=== PATIENT | female | born 1950 | race Caucasian/White ===

== ENCOUNTER 2019-02-14 02:54 | Inpatient (IN) | payer MEDICARE ==
[~2019-02-14] VITALS: Ht 162.6 cm; Wt 125.2 kg
[2019-02-14 03:04] VITALS: BP 120/52
[2019-02-14] MEDS ORDERED: TRAMADOL 50 MG50 MG PO (03:08)
[2019-02-14] MEDS ORDERED: NEURONTIN 300300 M1 PO (03:08)
[2019-02-14] MEDS ORDERED: IBUPROFEN 800800 M1 PO (03:09)
[2019-02-14] MEDS ORDERED: LAMICTAL (ORAN1 EACH PO (03:10)
[2019-02-14 03:27] LABS: ABSOLUTE EOSINOPHILS 0.2 thou/uL (0.0-0.7); ABSOLUTE LYMPHOCYTES 1.2 thou/uL (0.8-5.3); ABSOLUTE MONOCYTES 0.8 thou/uL (0.0-1.2); ABSOLUTE NEUTROPHILS 9.8 thou/uL (1.6-8.1); BASOPHILS 0.3 %; EOSINOPHILS 1.9 %; HEMATOCRIT 30.7 % (37.0-47.0); HEMOGLOBIN 9.3 gm/dL (12.0-15.0); LYMPHOCYTES 10.1 %; MCH 22.3 pg (26.0-34.0); MCHC 30.4 g/dL (28.0-37.0); MCV 73.2 fL (80.0-100.0); MPV 7.5 fl. (7.2-11.1); NUCLEATED RBCS 0 /100WBC; PLATELET COUNT* 326 thou/uL (150-400); POLYS 80.7 %; RDW-CV 18.2 % (10.5-14.5); WBC 12.1 thou/uL (4.0-11.0)
[2019-02-14 03:36] LABS: ANION GAP 9 mmol/L (7-16); BUN 15 mg/dL (7-18); CALCIUM 8.3 mg/dL (8.5-10.1); CHLORIDE 106 mmol/L (98-107); CO2 26 mmol/L (21-32); CREATININE 1.2 mg/dL (0.6-1.3); GLUCOSE 118 mg/dL (70-99); POTASSIUM 4.1 mmol/L (3.5-5.1); SODIUM 141 mmol/L (136-145)
[2019-02-14 03:53] LABS: ALBUMIN 2.7 g/dL (3.4-5.0); ALKALINE PHOSPHATASE 131 U/L (46-116); LIPASE 80 U/L (73-393); NT-PRO BRAIN NAT PEPTIDE 314 pg/mL (<300); SGOT 16 U/L (15-37); SGPT 23 U/L (30-65); TOTAL BILIRUBIN 0.2 mg/dL (<0.1-1.0); TOTAL PROTEIN 6.3 g/dL (6.4-8.2); TROPONIN-I LEVEL <0.06 ng/mL (<0.06)
[2019-02-14 04:48] LABS: URINE BILIRUBIN NEGATIVE (Negative); URINE BLOOD NEGATIVE (Negative); URINE CLARITY CLEAR; URINE COLOR YELLOW; URINE GLUCOSE-RANDOM NEGATIVE (Negative); URINE KETONES NEGATIVE (Negative); URINE LEUKOCYTES-REFLEX TRACE (Negative); URINE PROTEIN NEGATIVE (Negative); URINE UROBILINOGEN 0.2 E.U./dl (0.2-1.0)
[2019-02-14 04:50] LABS: URINE NITRITE-REFLEX POSITIVE (Negative)
[2019-02-14 05:03] LABS: BACTERIA-REFLEX >30 Many /HPF (None Seen); SQUAMOUS 0-3 Few /LPF (0-3); URINE RBC 3-10 Few /HPF (0-2); URINE WBC-REFLEX >25 Many /HPF (0-5); WBC CLUMPS Moderate (None Seen)
[2019-02-14 05:04] LABS: CASTS None Seen /LPF (None Seen); CRYSTALS None Seen /LPF (None Seen); MUCUS 0-3 Light strn/LPF (None Seen)
--- NOTE | 2019-02-14 07:12 | NUR ---
THIS NURSE RECEIVED REPORT FROM LAWRENCE PINEDA. THIS NURSE TO ASSUME PT CARE AT THIS [facility].
--- NOTE | 2019-02-14 07:32 | NUR ---
NURSE WENT IN ROOM TO CHECK ON PT. PT ASKED "I DON'T KNOW IF YOU ARE WANTING TO KEEP ME ON THIS BEDPAN SINCE I AM GOING SO OFTEN". NURSE ASKED PT IF SHE HAD BEDPAN UNDER HER CURRENTLY. PT NODDED HEAD UP AND DOWN. NURSE ASSISTED PT OFF BEDPAN. BED COMPLETELY SOILED. NURSE ASSISTED TRANSFERING PT TO CHAIR, PT TOLERATED WELL. NURSE CHANGED PT LINENS AND PT GIVEN NEW GOWN TO CHANGE INTO. NURSE ASKED HOW LONG PT HAD BEEN ON BEDPAN, PT STATED "AT LEAST AN HOUR". COMMODE USE DISCUSSED WITH PT, PT AGREEABLE, COMMODE PLACED IN ROOM.
[2019-02-14 07:36] LABS: HYPOCHROMASIA 1+; MICROCYTES 1+
--- NOTE | 2019-02-14 08:09 | NUR ---
PT CALLED OUT. NURSE IN ROOM. PT STATES "I NEED TO TAKE MY MORNING MEDS". PT HAS MEDICATIONS IN HAND. DR. OLIVEIRA ASKED BY NURSE IF PT COULD TAKE MEDICATIONS. DR. OLIVEIRA STATED "YES, THAT IS FINE". NURSE NOTIFIED PT SHE COULD TAKE MEDICATIONS. WATER AND CRACKERS GIVEN TO PT. CALL LIGHT WITHIN REACH.
--- NOTE | 2019-02-14 09:42 | NUR ---
HOSPITALIST AT BEDSIDE TALKING WITH PT.
--- NOTE | 2019-02-14 12:44 | EKG ---
[place] [address] ELECTROCARDIOGRAM REPORT Name: PAYAL SAHNI Room: [place] [address] ADM IN .R.#: [id number] Admission: 02/14/19 Attend Phys: Jace Rowland Discharge: Date of : 52 Report #: [id number] THIS REPORT FOR: //name// [facility] ED Test Date: 2019-02-14 Test Time: 03:05:37 Pat Name: PAYAL SAHNI Department: Room: [facility] Gender: F Canvas Shrinker: DENNYS : 1950 Requested By: Maureen Pa Order Number: [id number] MD: Lincoln Farr Measurements Intervals [place] Rate: 84 P: 51 ND: 135 QRS: 7 QRSD: 91 T: 79 QT: 373 QTc: 441 Interpretive Statements Sinus rhythm Abnormal R-wave progression, early transition No previous ECG available for comparison Electronically Signed On 02-14-2019 12:44:41 CDT by Lincoln Farr [email or web address] <ELECTRONICALLY SIGNED> By: Lincoln Farr MD, [facility] 02/14/19 [id number] Lincoln Farr MD, FACC /EPI
--- NOTE | 2019-02-14 13:12 | NUR ---
DR. ALCANTAR PAGED REGARDING REQUESTED LITHIUM LEVEL DRAW FROM FAMILY.
--- NOTE | 2019-02-14 14:49 | NUR ---
REPORT GIVEN TO LAWRENCE KEARNS WHO IS TO ASSUME PT CARE INPATIENT NURSE.
[2019-02-14 14:50] VITALS: BP 157/64
[2019-02-14 15:12] VITALS: BP 157/69
--- NOTE | 2019-02-14 15:25 | NUR ---
PT ANSWERS ORIENTATION QUESTIONS APPRORIATELY, HOWEVER PT IS FORGETFUL.LUNGS CLEAR ON ROOM AIR. HEART REGULAR, PULSES 2+ ALL EXTREMITIES. NO SKIN ISSUES NOTED ON ADMISSION. PT COMPLAINS OF WEAKNESS. STRENGTH SYMMETRICAL ON UPPER, LOWER AND FACIAL MUSCLES. PT X1 ASSIST WITH GAIT BELT PIVOT TO COMMODE. PT ATTEMPTED TO GET OUT OF BED. PT EDUCATED ON USING CALL LIGHT. PT RESTING IN BED. FALL RISK PRECAUTIONS IN PLACE. WILL CONTINUE TO MONITOR.
--- NOTE | 2019-02-14 18:17 | NUR ---
PT ALERT AND FORGETFUL ,SUNDOWNERS PRESENT. PT CONFUSED AT TIMES. PAIN MEDS GIVEN ORDERED. TELE STATUS ORDERED. FALL RISK PRECAUTIONS IN PLACE. HOURLY ROUNDING COMPLETED. WILL CONTINUE TO MONITOR.
[2019-02-14 20:00] VITALS: BP 128/71
[2019-02-15] VITALS (7 sets, daily range): BP systolic 141–173; BP diastolic 67–91
[2019-02-15 05:06] LABS: ABSOLUTE EOSINOPHILS 0.3 thou/uL (0.0-0.7); ABSOLUTE LYMPHOCYTES 1.9 thou/uL (0.8-5.3); ABSOLUTE MONOCYTES 0.6 thou/uL (0.0-1.2); ABSOLUTE NEUTROPHILS 4.4 thou/uL (1.6-8.1); BASOPHILS 0.3 %; EOSINOPHILS 4.2 %; HEMATOCRIT 26.9 % (37.0-47.0); HEMOGLOBIN 8.4 gm/dL (12.0-15.0); LYMPHOCYTES 26.6 %; MCH 22.7 pg (26.0-34.0); MCHC 31.2 g/dL (28.0-37.0); MCV 72.8 fL (80.0-100.0); MONOCYTES 8.2 %; MPV 7.9 fl. (7.2-11.1); NUCLEATED RBCS 0 /100WBC; PLATELET COUNT* 299 thou/uL (150-400); POLYS 60.7 %; RDW-CV 18.3 % (10.5-14.5); WBC 7.2 thou/uL (4.0-11.0)
[2019-02-15 05:26] LABS: ANION GAP 7 mmol/L (7-16); BUN 5 mg/dL (7-18); CALCIUM 8.6 mg/dL (8.5-10.1); CHLORIDE 110 mmol/L (98-107); CHOLESTEROL 107 mg/dL (<200); CO2 29 mmol/L (21-32); CREATININE 0.6 mg/dL (0.6-1.3); GLUCOSE 95 mg/dL (70-99); HDL CHOLESTEROL 56 mg/dL (>40); LDL CHOLESTEROL 39 mg/dL (<100); POTASSIUM 3.9 mmol/L (3.5-5.1); SODIUM 146 mmol/L (136-145); TC:HDL 1.9 Ratio (Not establshd); TRIGLYCERIDE 63 mg/dL (<150); VLDL 13 mg/dL (<40)
[2019-02-15 05:34] LABS: SERUM ASSESSMENT CLEAR
[2019-02-15 06:23] LABS: PLATELET ESTIMATE ADEQUATE
[2019-02-15 06:24] LABS: HYPOCHROMASIA 2+; OVALOCYTES 2+
[2019-02-15 06:25] LABS: MICROCYTES 2+
--- NOTE | 2019-02-15 06:47 | NUR ---
PT TRANSFERED FROM [facility] AT 2000 VIA BED. PT ALERT AND ORIENTED TO SELF AND PLACE UPON ARRIVAL TO UNIT. PT AWARE OF BEING CONFUSED. 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 HIGH FALL PRECAUTIONS IN PLACE. CALL LIGHT WITHIN REACH, NEGATIVE SEPSIS SCREEN THIS AM.
--- NOTE | 2019-02-15 07:15 | NUR ---
CHANGE OF SHIFT BEDSIDE REPORT GIVEN PATIENT SEEN AT BEDSIDE, IN BED ASLEEP ASSUMED PATIENT CARE
[2019-02-16 00:54] VITALS: BP 174/68
[2019-02-16 03:09] LABS: GLYCOHEMOGLOBIN (HGB A1C) 6.2 % (4.8-5.6)
[2019-02-16 04:00] VITALS: BP 157/71
--- NOTE | 2019-02-16 05:28 | NUR ---
ASSUMED CARE OF PT AFTER REPORT AT 1930. PT A&OX4. VSS. PHYSICAL ASSESSMENT COMPLETED AND CHARTED. PT ON RA. PT TRACING SR ON TELE. PT UPSTANDBY TO RESTROOM. PT COMPLAINED OF RIGHT GROIN,LEG & LOWER BACK PAIN- MEDS GIVEN PER MAR. PT ABLE TO SLEEP WELL ON BED. CALL LIGHT WITHIN REACH.
--- NOTE | 2019-02-16 07:10 | NUR ---
CHANGE OF SHIFT, BEDSIDE REPORT GIVEN PATIENT SEEN AT BEDSIDE, IN BED ASLEEP ASSUMED PATIENT CARE
[2019-02-16 08:00] VITALS: BP 155/80
[2019-02-16 12:00] VITALS: BP 137/57
[2019-02-16 16:00] VITALS: BP 154/76
[2019-02-16 20:00] VITALS: BP 159/73
[2019-02-17 00:46] VITALS: BP 169/80
[2019-02-17 04:59] LABS: ABSOLUTE EOSINOPHILS 0.4 thou/uL (0.0-0.7); ABSOLUTE LYMPHOCYTES 2.6 thou/uL (0.8-5.3); ABSOLUTE MONOCYTES 0.9 thou/uL (0.0-1.2); ABSOLUTE NEUTROPHILS 4.8 thou/uL (1.6-8.1); BASOPHILS 0.4 %; EOSINOPHILS 4.4 %; HEMATOCRIT 29.1 % (37.0-47.0); HEMOGLOBIN 9.1 gm/dL (12.0-15.0); MCH 22.7 pg (26.0-34.0); MCHC 31.2 g/dL (28.0-37.0); MCV 72.8 fL (80.0-100.0); MONOCYTES 10.4 %; MPV 7.6 fl. (7.2-11.1); NUCLEATED RBCS 0 /100WBC; PLATELET COUNT* 294 thou/uL (150-400); POLYS 54.8 %; RDW-CV 18.2 % (10.5-14.5); WBC 8.8 thou/uL (4.0-11.0)
[2019-02-17 05:10] LABS: CALCIUM 8.2 mg/dL (8.5-10.1); CREATININE 0.6 mg/dL (0.6-1.3); POTASSIUM 3.4 mmol/L (3.5-5.1)
--- NOTE | 2019-02-17 06:12 | NUR ---
ASSUMED CARE OF PT AFTER REPORT AT 1930. PT A&OX4. VSS. PHYSICAL ASSESSMENT COMPLETED AND CHARTED. PT ON RA. PT ON MEDSURG STATUS. PT UPSTANDBY TO RESTROOM. PT COMPLAINED OF RIGHT HIP, LEG & LOWER BACK PAIN-MEDS GIVEN PER MAR. PT ABLE TO SLEEP WELL ON BED. FALL PRECAUTIONS IN PLACE. CALL LIGHT WITHIN REACH.
[2019-02-17 06:15] LABS: ANISOCYTOSIS 1+; HYPOCHROMASIA 1+; MICROCYTES 1+; PLATELET ESTIMATE ADEQUATE
[2019-02-17 08:00] VITALS: BP 142/70
[2019-02-17 12:30] VITALS: BP 169/80
[2019-02-17] MEDS ORDERED: DOK PLUS TABLE1 EACH PO (13:40)
[2019-02-17] MEDS ORDERED: KLOR-CON M2020 MEQ PO (13:40)
[2019-02-17] MEDS ORDERED: THERA M PLUS T1 EAC2 PO (13:40)
[2019-02-17] MEDS ORDERED: VITAMIN B-12500 MCG PO (13:41)
[2019-02-17] MEDS ORDERED: BACTRIM DS TAB1 EACH PO (13:41)
--- NOTE | 2019-02-17 14:16 | NUR ---
MET WITH PT AND SPOUSE TO DISCUSS HOME SITUATION/DC PLANNING. PT LIVES WITH SPOUSE, HE ASSISTS WITH IADLS NEEDED. PT IS NORMALLY FAIRLY INDEPENDENT. USES WALKER AND GRAB BARS. DID HAVE A FALL PRIOR TO ADMIT, INTERESTED IN [employer] INFO, GIVEN TO THEM. DISCUSSED HH, OPTIONS GIVEN. CHOSE [facility]. CALLED AND FAXED ORDERS TO [facility]. PT DENIES OTHER NEEDS
[2019-02-17 14:20] VITALS: BP 169/80
--- NOTE | 2019-02-17 16:37 | NUR ---
PT [facility] UNTIL DISCHARGE. PT MED SURG STATUS. PT REPORTED PAIN OF 6 AND MEDICATED. PT STAND BY ASSIST, POSSESSIONS AND CALL LIGHT WITHIN REACH. REC DC ORDERS. PT DISCHARGED, DISCHARGE EDUCATION COMPLETED. IV REMOVED WITHOUT COMPLICATION. PAPER SCRIPT AND CARE NOTES GIVEN TO PT. PT PUSHED TO FRONT DOOR BY TRANSPORT AND PICKED UP BY SPOUSE IN AUTO.
== END 2019-02-17 15:47 | disposition home health service (06) | DRG 871 ==
LOC: M.ERS 02:54 → EDBD 02:54 → M.TBA-ER 05:50 → M.ORTHSURG 05:50 → M.2W 21:42
PROVIDERS: Emergency Medicine; Family Medicine; ADMIT Family Medicine
DX: A41.9 Sepsis, unspecified organism (principal); G93.41 Metabolic encephalopathy; N30.00 Acute cystitis without hematuria; R65.20 Severe sepsis without septic shock; M19.90 Unspecified osteoarthritis, unspecified site; G89.29 Other chronic pain; M54.41 Lumbago with sciatica, right side; F39 Unspecified mood [affective] disorder; D50.9 Iron deficiency anemia, unspecified; R53.81 Other malaise; E53.8 Deficiency of other specified B group vitamins; B96.20 Unspecified Escherichia coli [E. coli] as the cause of diseases classified elsewhere; Z79.899 Other long term (current) drug therapy; Z79.1 Long term (current) use of non-steroidal anti-inflammatories (NSAID)

== ENCOUNTER → 2019-04-10 | Outpatient (CLI) | payer MEDICARE ==
[~2019-04-10] MED LIST: BACTRIM DS TAB1 EACH PO; DOK PLUS TABLE1 EACH PO; IBUPROFEN 800800 M1 PO; KLOR-CON M2020 MEQ PO; LAMICTAL (ORAN1 EACH PO; NEURONTIN 300300 M1 PO; THERA M PLUS T1 EAC2 PO; TRAMADOL 50 MG50 MG PO; VITAMIN B-12500 MCG PO
== END ==
LOC: M.LAB 10:18 → M.MRI 11:30
PROVIDERS: Psychiatry & Neurology Neuromuscular Medicine
DX: R90.82 White matter disease, unspecified (principal)